=== PATIENT | female | born 1990 | race Asian ===

== ENCOUNTER 2019-01-18 06:42 | Emergency (ER) | payer OTHER ==
[~2019-01-18] VITALS: Ht 160 cm; Wt 45.5 kg
[2019-01-18 06:47] VITALS: TEMP 98.3
[2019-01-18] MEDS ORDERED: PRENATAL PO (07:00)
[2019-01-18 07:39] LABS: HEMATOCRIT 37.8 % (37.0-47.0); HEMOGLOBIN 12.8 g/dl (12.5-16.0); MEAN CELL VOLUME 90 fl (80.0-100.0); MEAN CORPUSCULAR HEMOGLOBIN 31 pg (27.0-31.0); MEAN CORPUSCULAR HGB CONC 34 g/dl (33.0-37.0); MEAN PLATELET VOLUME 10.7 fl (7.4-10.4); PLATELET COUNT 193 K/mm3 (130-400); REDCELL DISTRIBUTION WIDTH-CV 12.1 % (11.5-14.5)
[2019-01-18 10:00] VITALS: BP 112/74; PULSE 91
[2019-01-18 14:10] LABS: BAND 4 % (0-10); EOSINOPHIL 1 % (0-4); LYMPHOCYTE 1 % (20.0-51.0); NEUTROPHILS 87 % (42.0-75.2); PLATELET ESTIMATE NORMAL (NORMAL)
[2019-01-18 14:11] LABS: HYPOCHROMIA 1+
== END 2019-01-18 10:03 | disposition home or self-care (01) ==
LOC: COL.ER 06:42
PROVIDERS: Family Medicine
DX: O03.4 Incomplete spontaneous abortion without complication (principal); Z3A.10 10 weeks gestation of pregnancy
CPT/HCPCS: J7030